=== PATIENT | female | born 1965 | race African-American/Black ===

== ENCOUNTER 2017-12-20 14:40 | Emergency (ER) | payer OTHER ==
[2017-12-20 14:54] VITALS: TEMP 98.5; BMI 34.3
[2017-12-20] MEDS ORDERED: ACETAMINOPHEN 325 MG TABLET (FP) PO ONE (15:28)
[2017-12-20] MEDS ORDERED: ACETAMINOPHEN 325 MG TABLET (FP) ONE (15:31)
[2017-12-20 15:37] LABS: URINE APPEARANCE Clear; URINE BILIRUBIN Negative (NEGATIVE); URINE COLOR Yellow; URINE GLUCOSE (UA) Negative (NEGATIVE); URINE KETONE Negative (NEGATIVE); URINE LEUK ESTERASE TRACE (NEGATIVE); URINE NITRITE Negative (NEGATIVE); URINE PROTEIN Negative (NEGATIVE); URINE UROBILINOGEN 0.2 (0.2-1.0)
--- NOTE | 2017-12-20 15:39 | PDOC ---
History of Present Illness <Talia Trammell - Last Filed: 12/20/17 17:41> - General History Source: Patient Exam Limitations: No Limitations - History of Present Illness Initial Comments: 12/20/17 15:41 The patient is a 52 year old female, with a significant past medical history of borderline DM, who presents to the emergency department with, lower back pain. Patient describes her pain as radiating to her buttocks with mild left pedal decreased sensation. She is able to ambulate without difficulties.Patient notes associated elevated blood pressure readings using an at home cuff of 130-150s/ 80s and 2 days of dysuria. The patient reports mild ear pain for 4 months that she is being followed up with her PCP, Dr. Connor. She did not take anything for her pain. She denies any weakness. She denies recent fevers, chills, headache or dizziness. She denies recent nausea, vomit, diarrhea or constipation. She denies recent frequency, urgency or hematuria. She denies recent chest pain or shortness of breath. Allergies: Aspirin. Past surgical history: None reported. Social history: Nonsmoker. Denies EtOH use and recreational drug use. Primary Care Physician: Dr. Connor <Duncan Lyman - Last Filed: 12/20/17 17:51> - General Chief Complaint: Pain Stated Complaint: LOWER BACK PAIN CHECK BLOOD PRESSURE Past History - Past Medical History COPD: No Diabetes: Yes (BORDER LINE) GI Disorders: Yes (ACID REFLUX) HTN: Yes Kidney Stones: Yes - Surgical History Abdominal Surgery: Yes (BILATERAL TUBAL LIGATION) - Suicide/Smoking/Psychosocial Hx Smoking Status: No Smoking History: Never smoked Number of Cigarettes Smoked Daily: 0 Cigars Per Day: 0 Information on smoking cessation initiated: No Hx Alcohol Use: No Drug/Substance Use Hx: No Substance Use Type: None Hx Substance Use Treatment: No <Talia Trammell - Last Filed: 12/20/17 17:41> <Duncan Lyman - Last Filed: 12/20/17 17:51> - Past Medical History Allergies/Adverse Reactions: Allergies Allergy/AdvReac Type Severity Reaction Status Date / Time aspirin Allergy Unknown Verified 12/20/17 14:42 Home Medications: Ambulatory Orders Ferrous Sulfate [Iron] 325 mg PO DAILY 12/20/17 Review of Systems - Review of Systems Able to Perform ROS?: Yes Comments:: 12/20/17 15:41 GENERAL/CONSTITUTIONAL: No fever or chills. No weakness. HEAD, EYES, EARS, NOSE AND THROAT: No change in vision. No ear pain or discharge. No sore throat. CARDIOVASCULAR: No chest pain or shortness of breath. RESPIRATORY: No cough, wheezing, or hemoptysis. GASTROINTESTINAL: No nausea, vomiting, diarrhea or constipation. GENITOURINARY: Dysuria. No frequency, or change in urination. MUSCULOSKELETAL: Lower back pain. No joint or muscle swelling or pain. No neck pain. SKIN: No rash NEUROLOGIC: Decreased left pedal sensation. No headache, vertigo, loss of consciousness, or change in strength/sensation. ENDOCRINE: No increased thirst. No abnormal weight change. HEMATOLOGIC/LYMPHATIC: No anemia, easy bleeding, or history of blood clots. ALLERGIC/IMMUNOLOGIC: No hives or skin allergy. All Other Systems: Reviewed and Negative <Duncan Lyman - Last Filed: 12/20/17 17:51> *Physical Exam - Vital Signs Last Vital Signs Temp Pulse Resp BP Pulse Ox 98.5 F 68 16 154/81 100 12/20/17 14:42 12/20/17 14:42 12/20/17 14:42 12/20/17 14:42 12/20/17 14:42 <Talia Trammell - Last Filed: 12/20/17 17:41> - Vital Signs Last Vital Signs Temp Pulse Resp BP Pulse Ox 98.5 F 68 16 154/81 100 12/20/17 14:42 12/20/17 14:42 12/20/17 14:42 12/20/17 14:42 12/20/17 14:42 - Physical Exam Comments: 12/20/17 15:42 GENERAL: Awake, alert, and fully oriented, in no acute distress HEAD: No signs of trauma EYES: PERRLA, EOMI, sclera anicteric, conjunctiva clear ENT: Auricles normal inspection, hearing grossly normal, nares patent. Moist mucosa NECK: Normal ROM, supple, no lymphadenopathy, JVD, or masses LUNGS: Breath sounds equal, clear to auscultation bilaterally. No wheezes, and no crackles HEART: Regular rate and rhythm, normal S1 and S2, no murmurs, rubs or gallops ABDOMEN: Soft, nontender, normoactive bowel sounds. No guarding, no rebound. No masses BACK: No midline or paraspinal tenderness. +EXTREMITIES: Normal range of motion, no edema. No erythema or tenderness. DP/ PT pulses 2+ and symmetric. Warm and well perfused. +NEUROLOGICAL: Decreased sensation to the left plantar surface. Strength 5/5. Moves all extremities. Normal speech, normal gait SKIN: Warm, Dry, normal turgor, no rashes or lesions noted. <Duncan Lyman - Last Filed: 12/20/17 17:51> ED Treatment Course - ADDITIONAL ORDERS Additional order review: Laboratory Results 12/20/17 15:30 Urine Color Yellow Urine Appearance Clear Urine pH 5.0 Ur Specific [place] 1.015 Urine Protein Negative Urine Glucose (UA) Negative Urine Ketones Negative Urine Blood 3+ H Urine Nitrite Negative Urine Bilirubin Negative Urine Urobilinogen 0.2 Ur Leukocyte Esterase Trace H - RADIOLOGY Radiology Studies Ordered: Category Date Time Status SPINE-LUMBAR SACRAL [RAD] Stat Radiology 12/20/17 15:28 Ordered - Medications Given in the ED: ED Medications Discontinued Medications Generic Name Dose Route Start Last Admin Trade Name Freq PRN Reason Stop Dose Admin Acetaminophen 650 mg 12/20/17 15:28 12/20/17 15:33 Tylenol - PO 12/20/17 15:29 650 mg ONCE ONE Administration <Talia Trammell - Last Filed: 12/20/17 17:41> - ADDITIONAL ORDERS Additional order review: Laboratory Results 12/20/17 15:30 Urine Color Yellow Urine Appearance Clear Urine pH 5.0 Ur Specific [place] 1.015 Urine Protein Negative Urine Glucose (UA) Negative Urine Ketones Negative Urine Blood 3+ H Urine Nitrite Negative Urine Bilirubin Negative Urine Urobilinogen 0.2 Ur Leukocyte Esterase Trace H - RADIOLOGY Radiograph Interpretation: 12/20/17 17:25 EXAM: CT abdomen and pelvis without contrast DATE OF EXAM: 2017-12-20 16:26:06 REASON FOR EXAM: Rule out stone COMPARISON: None Findings: Mild atelectasis and scarring in lung bases. No pleural effusions. The liver, gallbladder, pancreas, adrenal glands, and spleen are grossly unremarkable. *Bilateral nonobstructing nephrolithiasis, left greater than right. Indeterminate right renal cyst. No ureteral calculi or hydronephrosis. No AAA. Moderate stool in the colon. No evidence for diverticulitis, appendicitis, small bowel obstruction, free fluid, or free air. One or more of the following dose reduction techniques were used: automated exposure control, adjustment of the mA and/or kV according to patient size, use of iterative reconstructive technique. Read by: Vahid Garza MD - Medications Given in the ED: ED Medications Discontinued Medications Generic Name Dose Route Start Last Admin Trade Name Araseli PRN Reason Stop Dose Admin Acetaminophen 650 mg 12/20/17 15:28 12/20/17 15:33 Tylenol - PO 12/20/17 15:29 650 mg ONCE ONE Administration <Duncan Lyman - Last Filed: 12/20/17 17:51> Medical Decision Making - Medical Decision Making 12/20/17 15:39 52 yo back pain, miild co sensory changes in left foot 2 weeks. alsoc/of fluctant bp. 12/20/17 17:26 ct with renal stones, no ureteral stones. ua noted blood, no infection. xray large stool, stones, no bony deformity to vetebrae. will dc home recommend outpt followup for mri due to paresthesia in foot. <Talia Trammell - Last Filed: 12/20/17 17:41> - Medical Decision Making 12/20/17 5:15pm Call placed to Dr. Connor's answering service, call disconnected before full message left. 5:22pm Second placed to Dr. Connor's answering service, call disconnected before full message left. 5:35pm Third placed to Dr. Connor's answering service, call disconnected before message left. <Duncan Lyman - Last Filed: 12/20/17 17:51> *DC/Admit/Observation/Transfer - Discharge Dispostion Decision to Admit order: No <Talia Trammell - Last Filed: 12/20/17 17:41> - Attestations Scribe Attestion: 12/20/17 15:42 Documentation prepared by Duncan Lyman, acting as nurses medical assistants phlebotomists for Talia Trammell MD. <Duncan Lyman - Last Filed: 12/20/17 17:51> Diagnosis at time of Disposition: Low back pain - Discharge Dispostion Disposition: HOME Condition at time of disposition: Stable - Referrals Referrals: Bg Connor [Non Staff, Medical] - John Sepulveda MD [Staff Physician] - Nino Dougherty MD [Staff Physician] - - Patient Instructions Printed Discharge Instructions: Low Back Pain, DI for High Blood Pressure Additional Instructions: you should follow up with Dr Callahan your urologist. you can also follow up with dr. SEPULVEDA, an orthopedic spine surgeon. you should follow up with dr. Connor for a repeat blood pressure check in 3 - 5 days. return for weakness, worsening numbness chest pain shortness of breath or any concerns. your ct scan shows kidney stones, no blockage. otherwise normal. your urine is negative for infection only shows blood. you will likley need an outpatient mri of your spine for continued back pain . please call friday to set up with your primary doctor, or schedule appt to see dr. sepulveda.
[2017-12-20 16:12] LABS: EPI CELLS FEW /HPF
[2017-12-20 16:15] LABS: CALCIUM OXALATE CRYSTALS MODERATE /hpf (NONE SEEN)
[2017-12-20] MEDS ORDERED: IBUPROFEN 600 MG TABLET (FP) PO ONE ×3 (17:39→17:44)
[2017-12-20 17:42] VITALS: BP 146/84; PULSE 60
== END 2017-12-20 17:46 | disposition home or self-care (01) ==
LOC: FER 14:40
DX: M54.5 Low back pain (principal); R73.03 Prediabetes
CPT/HCPCS: 72100-TC-FY; 74176; 81003; 81015; 99282-25

== ENCOUNTER 2019-01-18 13:36 | Day surgery (SDC) | payer OTHER ==
[2019-01-15 11:17] VITALS: BMI 34.0
[2019-01-18] MEDS ORDERED: MIDAZOLAM HCL 2 MG/2 ML SINGLE DOSE VIAL ONE (16:11)
[2019-01-18] MEDS ORDERED: PROPOFOL 20 ML ONE (16:29)
--- NOTE | 2019-01-18 17:19 | OP ---
Operative Note - Note: Operative Date: 01/18/19 Pre-Operative Diagnosis: left renal stone Operation: left eswl Findings: 20 mm left upper pole stone Post-Operative Diagnosis: Same as Pre-op Surgeon: Pb Cruz Anesthesia: Fractional Operative Report Dictated: Yes
[2019-01-18] MEDS ORDERED: LACTATED RINGERS SOLUTION 1,000 ML IV SCH (17:30)
--- NOTE | 2019-01-18 17:34 | OP ---
DATE OF OPERATION: 01/18/2019 PREOPERATIVE DIAGNOSIS: Left renal stone. POSTOPERATIVE DIAGNOSIS: Left renal stone. PROCEDURE: Left extracorporeal shock-wave lithotripsy. ATTENDING: Selena Rossi MD ANESTHESIA: Fractional. DESCRIPTION OF PROCEDURE: Patient was brought in the operating room, placed in a supine position on the operating room table. Ultrasonography and fluoroscopy were performed. A 20-mm left upper pole stone was identified. At this point, anesthesia and preoperative antibiotics were administered. Shock-wave lithotripsy was then started; 3000 impulses at 20 joules of power were administered to the stone. Excellent fragmentation was noted under real time ultrasonography and fluoroscopy. No complications were noted. Patient tolerated the procedure very well. SELENA ROSSI M.D. [id number]
[2019-01-18 18:19] VITALS: TEMP 98.3
[2019-01-18 18:53] VITALS: BP 133/79; PULSE 63
== END 2019-01-18 19:11 | disposition home or self-care (01) ==
LOC: JASU-SURG 13:36 → JOR 13:36 → JASU-SURG 19:11
PROVIDERS: ATTEND Urology
PROC: 0TF4XZZ Fragmentation in Left Kidney Pelvis, External Approach (ICD-10-PCS; principal; 2019-01-18 16:17)
DX: N20.0 Calculus of kidney (principal)
CPT/HCPCS: 94760

== ENCOUNTER 2019-02-01 09:09 | Day surgery (SDC) | payer OTHER ==
[2019-01-26 17:33] VITALS: BMI 34.0
[2019-02-01 09:38] VITALS: TEMP 98.1
[2019-02-01] MEDS ORDERED: MIDAZOLAM HCL 2 MG/2 ML SINGLE DOSE VIAL ONE (13:06)
--- NOTE | 2019-02-01 13:55 | OP ---
Operative Note - Note: Operative Date: 02/01/19 Pre-Operative Diagnosis: Right remal stone Operation: Righr ESWL Findings: 6 mm lower pole Right renal stone Post-Operative Diagnosis: Same as Pre-op Surgeon: Pb Cruz Anesthesia: Fractional Estimated Blood Loss (mls): 0 Drains, Volume Out (mls): 0 Operative Report Dictated: Yes
[2019-02-01 15:11] VITALS: BP 123/64; PULSE 60
--- NOTE | 2019-02-01 17:36 | OP ---
DATE OF OPERATION: 02/01/2019 PREOPERATIVE DIAGNOSIS: Right renal stone. POSTOPERATIVE DIAGNOSIS: Right renal stone. PROCEDURE: Right extracorporeal shock-wave lithotripsy. ATTENDING: Selena Rossi MD ANESTHESIA: Fractional. DESCRIPTION OF PROCEDURE: The patient was brought in the operating room and placed in a supine position on the operating room table. Ultrasonography and fluoroscopy were performed. A 6-mm right lower pole stone was identified. At this point, fractional anesthesia was administered as well as antibiotics. Shock-wave lithotripsy was then performed. Excellent fragmentation of the stone was noted under real time ultrasonography and fluoroscopy. No complications were noted. DISPOSITION: To recovery room. SELENA ROSSI M.D. [id number]
== END 2019-02-01 15:27 | disposition home or self-care (01) ==
LOC: JASU-SURG 09:09
PROVIDERS: ATTEND Urology
PROC: 0TF3XZZ Fragmentation in Right Kidney Pelvis, External Approach (ICD-10-PCS; principal; 2019-02-01 12:30)
DX: N20.0 Calculus of kidney (principal)

== ENCOUNTER 2019-02-13 19:10 | Inpatient (IN) | payer OTHER ==
--- NOTE | 2019-02-13 19:47 | PDOC ---
History of Present Illness - General Chief Complaint: Urinary Problem Stated Complaint: HEMATURIA Time Seen by Provider: 02/13/19 19:28 History Source: Patient - History of Present Illness Initial Comments: 02/13/19 21:48 Chief complaint: Hematuria Patient is 53-year-old female with history of diabetes, hypertension, anemia, kidney stones who states that she has had hematuria that started today, patient last had this problem in January, she ended up having lithotripsy on both sides of her kidneys with multiple stones. Patient also January had endoscopy and colonoscopy. Patient has no fever but is complaining of some generalized back pain. Patient is not vomiting. She states that her urine started out pink earlier today and now it is just red. GENERAL/CONSTITUTIONAL: No fever, weakness. dizziness HEAD, EYES, EARS, NOSE AND THROAT: No change in vision. No ear pain or discharge. No sore throat. CARDIOVASCULAR: No chest pain RESPIRATORY: No shortness of breath or cough GASTROINTESTINAL: +pain, no: Nausea, vomiting, diarrhea or constipation GENITOURINARY: No dysuria, + hematuria MUSCULOSKELETAL: No neck or back pain SKIN: No rash NEUROLOGIC: No headache, vertigo, loss of consciousness, or loss of sensation. GENERAL: The patient is awake, alert, and fully oriented, in no acute distress. HEAD: Normal with no signs of trauma. EYES: Pupils equal, round and reactive to light, sclera anicteric, conjunctiva clear. ENT: pharynx: no erythema, no exudate, uvula midline NECK: supple CHEST: clear, nontender, rr ABD: soft, nontender BACK: no tenderness or signs of injury EXTREMITIES: Normal range of motion, no edema. NEUROLOGICAL: Normal speech, normal gait. SKIN: Warm, Dry Past History - Past Medical History Allergies/Adverse Reactions: Allergies Allergy/AdvReac Type Severity Reaction Status Date / Time aspirin Allergy Unknown Verified 02/13/19 19:20 Home Medications: Ambulatory Orders Ferrous Sulfate [Iron] 325 mg PO DAILY 12/20/17 Anemia: Yes Asthma: No Cancer: No Cardiac Disorders: No CVA: No COPD: No CHF: No Dementia: No Diabetes: Yes (BORDER LINE) GI Disorders: Yes (ACID REFLUX) Disorders: No (kidney stones left greater than right) HTN: Yes (borderline) Hypercholesterolemia: No Kidney Stones: Yes Liver Disease: Yes (elevated enzymes) Seizures: No Thyroid Disease: No - Surgical History Abdominal Surgery: Yes (BILATERAL TUBAL LIGATION) Appendectomy: No Cardiac Surgery: No Cholecystectomy: No Lung Surgery: No Neurologic Surgery: Yes (2004 bulging tissue) Orthopedic Surgery: No - Immunization History Immunization Up to Date: Yes - Psycho Social/Smoking Cessation Hx Smoking Status: No Smoking History: Never smoked Number of Cigarettes Smoked Daily: 0 Cigars Per Day: 0 Hx Alcohol Use: No Drug/Substance Use Hx: No Substance Use Type: None Hx Substance Use Treatment: No *Physical Exam - Vital Signs Last Vital Signs Temp Pulse Resp BP Pulse Ox 99.0 F 72 20 151/53 L 99 02/13/19 19:15 02/13/19 19:15 02/13/19 19:15 02/13/19 19:15 02/13/19 19:15 ED Treatment Course - LABORATORY CBC & Chemistry Diagram: 02/13/19 20:30 02/13/19 20:30 Medical Decision Making - Medical Decision Making 02/13/19 21:52 53-year-old female history anemia, hypertension, diabetes and multiple kidney stones who has nam hematuria that started very light this morning is gotten worse during the day with some vague abdominal pain. Given her history will get labs, check UA, and get stone study to assess whether there are kidney stones and obstruction. Patient signed out to CHAI Killian at 11 pm for further evaluation of her UA and CAT scan. Her CBC and chemistry are stable. Urine is dark, CPK added Discharge - Discharge Information Problems reviewed: Yes Clinical Impression/Diagnosis: Hematuria Qualifiers: Hematuria type: unspecified type Qualified Code(s): R31.9 - Hematuria, unspecified - Follow up/Referral - Patient Discharge Instructions - Post Discharge Activity
[2019-02-13] MEDS ORDERED: ACETAMINOPHEN 325 MG TABLET (FP) PO ONE (19:48)
[2019-02-13] MEDS ORDERED: SODIUM CHLORIDE 1,000 ML IV STA (19:48)
[2019-02-13 20:52] LABS: BASO % 1.8 % (0-2.0); EOS % 1.3 % (0-4.5); HEMOGLOBIN 11.1 GM/dL (10.7-15.3); LYMPH % 51.7 % (8-40); MCH 28.7 pg (25.7-33.7); MCHC 32.7 g/dl (32.0-36.0); MEAN CELL VOLUME 87.7 fl (80-96); MEAN PLT VOLUME 9.1 fl (7.5-11.1); MONO % 5.4 % (3.8-10.2); NEUT % 39.8 % (42.8-82.8); PLATELET COUNT 312 K/MM3 (134-434); RBC 3.87 M/mm3 (3.60-5.2); RDW 12.8 % (11.6-15.6); WHITE BLOOD COUNT 7.1 K/mm3 (4.0-10.0)
[2019-02-13 21:21] LABS: ALBUMIN 3.8 g/dl (3.4-5.0); ALK PHOS 88 U/L (45-117); ANION GAP 11 MMOL/L (8-16); BILIRUBIN,TOTAL 0.7 mg/dL (0.2-1); BLOOD UREA NITROGEN 14.3 mg/dL (7-18); CALCIUM 9.5 mg/dL (8.5-10.1); CHLORIDE 104 mmol/L (98-107); CO2 26 mmol/L (21-32); CREATININE 0.8 mg/dL (0.55-1.3); GLUCOSE,RANDOM 108 mg/dL (74-106); SGOT/AST 22 U/L (15-37); SGPT/ALT 29 U/L (13-61); SODIUM 140 mmol/L (136-145); TOT PROT 8.2 g/dl (6.4-8.2)
[2019-02-13 22:00] LABS: EPI CELLS 1.4 /HPF (0-5/HPF); HYALINE CASTS 3 /lpf (0-8); URINE APPEARANCE CLOUDY; URINE BACTERIA 0.5 /hpf (NEGATIVE); URINE BILIRUBIN NEGATIVE (NEGATIVE); URINE COLOR RED; URINE GLUCOSE (UA) NEGATIVE (NEGATIVE); URINE KETONE NEGATIVE (NEGATIVE); URINE LEUK ESTERASE 1+ (NEGATIVE); URINE NITRITE NEGATIVE (NEGATIVE); URINE PROTEIN 3+ (NEGATIVE); URINE RBC 2247 /hpf (0-4); URINE WBC 14 /hpf (0-5)
--- NOTE | 2019-02-14 00:31 | PDOC ---
*Physical Exam - Vital Signs Last Vital Signs Temp Pulse Resp BP Pulse Ox 99.0 F 72 20 151/53 L 99 02/13/19 19:15 02/13/19 19:15 02/13/19 19:15 02/13/19 19:15 02/13/19 19:15 - Physical Exam General Appearance: Yes: Nourished, Appropriately Dressed. No: Apparent Distress Musculoskeletal: positive: CVA Tenderness (L) (mild) ED Treatment Course - LABORATORY CBC & Chemistry Diagram: 02/15/19 06:22 02/14/19 07:49 - ADDITIONAL ORDERS Additional order review: Laboratory Results 02/13/19 02/13/19 21:50 20:30 Sodium 140 Potassium 4.0 Chloride 104 Carbon Dioxide 26 Anion Gap 11 BUN 14.3 Creatinine 0.8 Est GFR (CKD-EPI)AfAm 96.87 Est GFR (CKD-EPI)NonAf 83.58 Random Glucose 108 H Calcium 9.5 Total Bilirubin 0.7 AST 22 ALT 29 Alkaline Phosphatase 88 Creatine Kinase 222 H Creatine Kinase Index 0.9 CK-MB (CK-2) 2.0 Troponin I < 0.02 Total Protein 8.2 Albumin 3.8 Urine Color Red Urine Appearance Cloudy Urine pH 5.0 Ur Specific [place] 1.013 Urine Protein 3+ H Urine Glucose (UA) Negative Urine Ketones Negative Urine Blood 3+ H Urine Nitrite Negative Urine Bilirubin Negative Urine Urobilinogen 1.0 Ur Leukocyte Esterase 1+ H Urine WBC (Auto) 14 Urine RBC (Auto) 2247 Urine Casts (Auto) 3 U Epithel Cells (Auto) 1.4 Urine Bacteria (Auto) 0.5 02/13/19 20:30 RBC 3.87 MCV 87.7 MCHC 32.7 RDW 12.8 MPV 9.1 Neutrophils % 39.8 L D Lymphocytes % 51.7 H D Monocytes % 5.4 Eosinophils % 1.3 D Basophils % 1.8 - Medications Given in the ED: ED Medications Discontinued Medications Generic Name Dose Route Start Last Admin Trade Name Freq PRN Reason Stop Dose Admin Acetaminophen 975 mg 02/13/19 19:48 02/13/19 19:56 Tylenol - PO 02/13/19 19:49 975 mg ONCE ONE Administration Sodium Chloride 1,000 mls @ 1,000 mls/hr 02/13/19 19:48 02/13/19 19:57 Normal Saline - IV 02/13/19 20:47 1,000 mls/hr ASDIR STA Administration Medical Decision Making - Medical Decision Making 02/14/19 01:42 Signout was given to me by IRENA Gilliland at 2300 hrs. on 02/13/2019. Patient was pending CT spiral. CT shows multiple obstructing stones in the left ureter measuring 7 to 8 mm each. In addition, there are more multiple nonobstructing nephrolithiasis left greater than right measuring up to 1.1 cm in the lower pole of the left kidney. Incidental note is made of a 2.8 cm cyst in the inferior pole of the right kidney. Patient had recent lithotripsy by Dr. Windy Porras on February 03 for kidney stones on the right side. She had lithotripsy for the left side done on 01/20/2019. Given multiple obstructing stones with moderate to mild hydro-we will place the patient for admission Labs are unremarkable. Patient states that her PCP comes from the clinic [facility]. She does not know the name of her physician. Sign out given to Dr. Pool for admission at this time. Uro consult placed. Discharge - Discharge Information Problems reviewed: Yes Clinical Impression/Diagnosis: Hydronephrosis with renal and ureteral calculus obstruction Hematuria Qualifiers: Hematuria type: unspecified type Qualified Code(s): R31.9 - Hematuria, unspecified Condition: Stable - Admission Yes - Follow up/Referral - Patient Discharge Instructions - Post Discharge Activity
--- NOTE | 2019-02-14 03:01 | PN ---
Teaching Attending Note Name of Resident: Bernie Pool ATTENDING PHYSICIAN STATEMENT I saw and evaluated the patient. I reviewed the resident's note and discussed the case with the resident. I agree with the resident's findings and plan as documented. SUBJECTIVE: 53-year-old female with history of diabetes, hypertension, anemia, kidney stones With hematuria x1 day. She reported recent bilateral lithotripsy for nephro ureter-lithiasis. Complains of vague Back and abdominal pain.There is no nausea or vomiting. OBJECTIVE: Last Vital Signs Temp Pulse Resp BP Pulse Ox 98.9 F 78 20 156/61 98 02/14/19 02:29 02/14/19 02:29 02/14/19 02:29 02/14/19 02:29 02/14/19 02:29 GENERAL: Well developed, well nourished. Awake and alert. No acute distress. HEENT: Normocephalic, atraumatic. PERRLA, EOMI. No conjunctival pallor. Sclera are non- icteric. Moist mucous membranes. Oropharynx is clear. NECK: Supple. Full ROM. No JVD. Carotid pulses 2+ and symmetric, without bruits. No thyromegaly. No lymphadenopathy. CARDIOVASCULAR: Regular rate and rhythm. No murmurs, rubs, or gallops. Distal pulses are 2+ and symmetric. PULMONARY: No evidence of respiratory distress. Lungs clear to auscultation bilaterally. No wheezing, rales or rhonchi. ABDOMINAL: Soft. Non-tender. Non-distended. No rebound or guarding. No organomegaly. Normoactive bowel sounds. MUSCULOSKELETAL Normal range of motion at all joints. No bony deformities or tenderness. No CVA tenderness. EXTREMITIES: No cyanosis. No clubbing. No edema. No calf tenderness. SKIN: Warm and dry. Normal capillary refill. No rashes. No jaundice. PSYCHIATRIC: Cooperative. Good eye contact. Appropriate mood and affect. Abnormal Lab Results 02/13/19 02/13/19 02/13/19 20:30 20:30 21:50 Neutrophils % 39.8 L D Lymphocytes % 51.7 H D Random Glucose 108 H Creatine Kinase 222 H Urine Protein 3+ H Urine Blood 3+ H Ur Leukocyte Esterase 1+ H Imaging studies reviewed CT of abdomen and pelvisMild to moderate degree of left-sided hydro-ureter nephrosis secondary to multiple obstructing ureterolithiasis in the ureter on the left measuring up to 7 to 8 mm. In addition there are multiple nonobstructing nephrolithiasis left greater than right measuring up to 1.1 cm in the lower pole of the left kidney. Incidental note is made of a 2.8 cm cyst in the inferior pole over the right kidney. ASSESSMENT AND PLAN: 53-year-old woman with bilateral nonobstructing nephrolithiasis left greater than right. Mild to moderate left-sided hydro-ureter nephrosis. Hematuria with 3+ blood on UA, hemodynamically stable. Admit to MedSurg EKG Urology consult N.p.o. PT, PTT Type and screen Pain management with morphine IV as needed IV fluid hydration SCDs for DVT prophylaxis
[2019-02-14 03:33] VITALS: BMI 33.3
--- NOTE | 2019-02-14 04:11 | HP ---
CHIEF COMPLAINT: hematuria PCP: HISTORY OF PRESENT ILLNESS: Pt is 53yo F with PMHx of PreDM, PreHTN, anemia, kidney stones presenting for hematuria that started today. Pt reports having some epigastric abdominal discomfort, for about 4 days prior to onset of hematuria pinkish to red colored urine. No fevers, no chills. There is now intermittent L flank abdominal pain radiating to the groin. Pt reports prior episodes of kidney stones requiring lithotrypsy here by Dr Sinclair in January 20 2019, and Feb 03 2019 for lithotripsy left then Right. Due to anemia, pt also had colonoscopy in , then endoscopy with Dr Justin. Pt presented because of the hematuria. In the ED she was reported to be a "hard stick" and did not get any intravenous fluids. She currently reports the flank pain as 4/10 managed off pain meds, but at its peak the pain is 10/10. Pt reports adequate oral hydration. She reports filtering her urine in past but unsure of results of stone analysis. Her father had gall stones but no family hx of renal stones. Pt reports not being compliant on iron tabs or metformin. ER course was notable for: (1) H/H-11.1, MCV-87.7, BUN/Cr- 14.3/0.8 (2) UA- LE1+, protein 3+, bld 3+, WBC-14, RBC-2247, casts-3, Uepith-1.4 (3) Recent Travel: PAST MEDICAL HISTORY: As above PAST SURGICAL HISTORY: Social History: Smoking: Denies Alcohol:Denies Drugs: Denies Allergies aspirin Allergy (Unknown, Verified 02/13/19 19:20) HOME MEDICATIONS: Home Medications Medication Instructions Recorded Ferrous Sulfate [Iron] 325 mg PO DAILY 12/20/17 REVIEW OF SYSTEMS Except as above PHYSICAL EXAMINATION Vital Signs - 24 hr 02/13/19 02/14/19 02/14/19 19:15 02:29 03:13 Temperature 99.0 F 98.9 F 98.4 F Pulse Rate 72 69 Pulse Rate [ 78 Left Radial] Respiratory 20 20 16 Rate Blood Pressure 151/53 L 134/71 Blood Pressure 156/61 [Left Arm] O2 Sat by Pulse 99 98 100 Oximetry (%) GENERAL: Awake, alert, and fully oriented, in no acute distress. Obese female EARS, NOSE, THROAT: Moist mucous membranes. LUNGS: Breath sounds equal, clear to auscultation bilaterally. No wheezes, and no crackles. HEART: Regular rate and rhythm, normal S1 and S2 without murmur, rub or gallop. ABDOMEN: Obese, Soft, tender, LLQ MUSCULOSKELETAL: Normal range of motion at all joints. No CVA tenderness. LOWER EXTREMITIES: 2+ pulses, warm, well-perfused. No calf tenderness. No peripheral edema. NEUROLOGICAL: Cranial nerves II-XII intact. Normal speech. Normal gait. PSYCHIATRIC: Cooperative. Good eye contact. Appropriate mood and affect. Laboratory Results - last 24 hr 02/13/19 02/13/19 02/13/19 20:30 20:30 21:50 WBC 7.1 RBC 3.87 Hgb 11.1 Hct 34.0 MCV 87.7 MCH 28.7 MCHC 32.7 RDW 12.8 Plt Count 312 MPV 9.1 Absolute Neuts (auto) 2.8 Neutrophils % 39.8 L D Lymphocytes % 51.7 H D Monocytes % 5.4 Eosinophils % 1.3 D Basophils % 1.8 Nucleated RBC % 0 Sodium 140 Potassium 4.0 Chloride 104 Carbon Dioxide 26 Anion Gap 11 BUN 14.3 Creatinine 0.8 Est GFR (CKD-EPI)AfAm 96.87 Est GFR (CKD-EPI)NonAf 83.58 POC Glucometer Random Glucose 108 H Calcium 9.5 Total Bilirubin 0.7 AST 22 ALT 29 Alkaline Phosphatase 88 Creatine Kinase 222 H Creatine Kinase Index 0.9 CK-MB (CK-2) 2.0 Troponin I < 0.02 Total Protein 8.2 Albumin 3.8 Urine Color Red Urine Appearance Cloudy Urine pH 5.0 Ur Specific Slaughter 1.013 Urine Protein 3+ H Urine Glucose (UA) Negative Urine Ketones Negative Urine Blood 3+ H Urine Nitrite Negative Urine Bilirubin Negative Urine Urobilinogen 1.0 Ur Leukocyte Esterase 1+ H Urine WBC (Auto) 14 Urine RBC (Auto) 2247 Urine Casts (Auto) 3 U Epithel Cells (Auto) 1.4 Urine Bacteria (Auto) 0.5 02/14/19 03:48 WBC RBC Hgb Hct MCV MCH MCHC RDW Plt Count MPV Absolute Neuts (auto) Neutrophils % Lymphocytes % Monocytes % Eosinophils % Basophils % Nucleated RBC % Sodium Potassium Chloride Carbon Dioxide Anion Gap BUN Creatinine Est GFR (CKD-EPI)AfAm Est GFR (CKD-EPI)NonAf POC Glucometer 126 Random Glucose Calcium Total Bilirubin AST ALT Alkaline Phosphatase Creatine Kinase Creatine Kinase Index CK-MB (CK-2) Troponin I Total Protein Albumin Urine Color Urine Appearance Urine pH Ur Specific [place] Urine Protein Urine Glucose (UA) Urine Ketones Urine Blood Urine Nitrite Urine Bilirubin Urine Urobilinogen Ur Leukocyte Esterase Urine WBC (Auto) Urine RBC (Auto) Urine Casts (Auto) U Epithel Cells (Auto) Urine Bacteria (Auto) CT shows multiple obstructing stones in the left ureter measuring 7 to 8 mm each. In addition, there are more multiple nonobstructing nephrolithiasis left greater than right measuring up to 1.1 cm in the lower pole of the left kidney. Incidental note is made of a 2.8 cm cyst in the inferior pole of the right kidney. ASSESSMENT/PLAN: Pt is a 53-year-old female with PMHx of PreDM, PreHTN, anemia, kidney stones presenting for hematuria that started today found to have multiple obstructing stones in the left ureter Hematuria In setting of L ureteral obstructive stones Urol consult- [place] Pain mx- morphine iv tylenol preop lab Iv hydration PreDM, PreHTN, anemia, Hx of kidney stones Cont to monitor No chemical prophylaxis, b/l SCDs NPO for now Dispo Med surg admit pending urology Visit type - Emergency Visit Emergency Visit: Yes ED Registration Date: 02/14/19 Care time: The patient presented to the Emergency Department on the above date and was hospitalized for further evaluation of their emergent condition. - New Patient This patient is new to me today: Yes Date on this admission: 02/14/19 - Critical Care Critical Care patient: No ATTENDING PHYSICIAN STATEMENT I saw and evaluated the patient. I reviewed the resident's note and discussed the case with the resident. I agree with the resident's findings and plan as documented. SUBJECTIVE: OBJECTIVE: ASSESSMENT AND PLAN:
[2019-02-14] MEDS ORDERED: MORPHINE SULFATE 2 MG/ML VIAL IVPUSH PRN (04:12)
[2019-02-14] MEDS ORDERED: SODIUM CHLORIDE 500 ML IV STA (04:12)
[2019-02-14] MEDS ORDERED: ACETAMINOPHEN 1000 MG/100 ML VIAL (NON FORMULARY) IVPB PRN (04:17)
[2019-02-14 08:28] LABS: EOS % 1.5 % (0-4.5); HEMATOCRIT 32.2 % (32.4-45.2); HEMOGLOBIN 10.6 GM/dL (10.7-15.3); LYMPH % 53.9 % (8-40); MCH 28.8 pg (25.7-33.7); MCHC 32.9 g/dl (32.0-36.0); MEAN CELL VOLUME 87.7 fl (80-96); MONO % 5.7 % (3.8-10.2); NEUT % 37.9 % (42.8-82.8); PLATELET COUNT 298 K/MM3 (134-434); RBC 3.67 M/mm3 (3.60-5.2); RDW 13.1 % (11.6-15.6); WHITE BLOOD COUNT 6.1 K/mm3 (4.0-10.0)
[2019-02-14 08:40] LABS: INR 1.02 (0.83-1.09)
[2019-02-14 08:42] LABS: ACTIVATED PTT 37.5 SECONDS (25.2-36.5)
[2019-02-14 08:57] LABS: ALBUMIN 3.4 g/dl (3.4-5.0); BILIRUBIN,TOTAL 0.6 mg/dL (0.2-1); BLOOD UREA NITROGEN 14.5 mg/dL (7-18); CALCIUM 9.4 mg/dL (8.5-10.1); CREATININE 0.7 mg/dL (0.55-1.3); MAGNESIUM 2.3 mg/dL (1.8-2.4); PHOSPHOROUS 4.5 mg/dL (2.5-4.9); TOT PROT 7.3 g/dl (6.4-8.2)
--- NOTE | 2019-02-14 10:11 | EKG ---
Test Reason : Blood Pressure : / mmHG Vent. Rate : 062 BPM Atrial Rate : 062 BPM P-R Int : 154 ms QRS Dur : 080 ms QT Int : 454 ms P-R-T Axes : 034 014 003 degrees QTc Int : 460 ms NORMAL SINUS RHYTHM NONSPECIFIC T WAVE ABNORMALITY ABNORMAL ECG WHEN COMPARED WITH ECG OF 15-OCT-2004 11:18, NONSPECIFIC T WAVE ABNORMALITY NOW EVIDENT IN ANTEROLATERAL LEADS Confirmed by KENNETH DALE, ALESHA ([id number]) on 02/14/2019 10:11:32 AM Referred By: Confirmed By:ALESHA COOPER MD
[2019-02-14] MEDS: SODIUM CHLORIDE 1,000 ML IV SCH ×2 (11:39→21:19)
--- NOTE | 2019-02-14 13:37 | PN ---
Progress Note (short form) - Note Progress Note: Subjective: no fever or chills. discomfort in lower abd. hematuria . dyuria earlier Objective: Vital Signs: Last Vital Signs Temp Pulse Resp BP Pulse Ox 98.2 F 59 L 16 117/57 L 100 02/14/19 06:00 02/14/19 06:00 02/14/19 06:00 02/14/19 06:00 02/14/19 03:13 Laboratory Results - last 24 hr 02/13/19 02/13/19 02/13/19 20:30 20:30 21:50 WBC 7.1 RBC 3.87 Hgb 11.1 Hct 34.0 MCV 87.7 MCH 28.7 MCHC 32.7 RDW 12.8 Plt Count 312 MPV 9.1 Absolute Neuts (auto) 2.8 Neutrophils % 39.8 L D Lymphocytes % 51.7 H D Monocytes % 5.4 Eosinophils % 1.3 D Basophils % 1.8 Nucleated RBC % 0 PT with INR INR PTT (Actin FS) Sodium 140 Potassium 4.0 Chloride 104 Carbon Dioxide 26 Anion Gap 11 BUN 14.3 Creatinine 0.8 Est GFR (CKD-EPI)AfAm 96.87 Est GFR (CKD-EPI)NonAf 83.58 POC Glucometer Random Glucose 108 H Calcium 9.5 Phosphorus Magnesium Total Bilirubin 0.7 AST 22 ALT 29 Alkaline Phosphatase 88 Creatine Kinase 222 H Creatine Kinase Index 0.9 CK-MB (CK-2) 2.0 Troponin I < 0.02 Total Protein 8.2 Albumin 3.8 Urine Color Red Urine Appearance Cloudy Urine pH 5.0 Ur Specific [place] 1.013 Urine Protein 3+ H Urine Glucose (UA) Negative Urine Ketones Negative Urine Blood 3+ H Urine Nitrite Negative Urine Bilirubin Negative Urine Urobilinogen 1.0 Ur Leukocyte Esterase 1+ H Urine WBC (Auto) 14 Urine RBC (Auto) 2247 Urine Casts (Auto) 3 U Epithel Cells (Auto) 1.4 Urine Bacteria (Auto) 0.5 Blood Type Antibody Screen 02/14/19 02/14/19 02/14/19 03:48 07:49 07:49 WBC 6.1 RBC 3.67 Hgb 10.6 L Hct 32.2 L MCV 87.7 MCH 28.8 MCHC 32.9 RDW 13.1 Plt Count 298 MPV 9.0 Absolute Neuts (auto) 2.3 Neutrophils % 37.9 L Lymphocytes % 53.9 H Monocytes % 5.7 Eosinophils % 1.5 Basophils % 1.0 Nucleated RBC % 0 PT with INR 12.00 INR 1.02 PTT (Actin FS) 37.5 H Sodium Potassium Chloride Carbon Dioxide Anion Gap BUN Creatinine Est GFR (CKD-EPI)AfAm Est GFR (CKD-EPI)NonAf POC Glucometer 126 Random Glucose Calcium Phosphorus Magnesium Total Bilirubin AST ALT Alkaline Phosphatase Creatine Kinase Creatine Kinase Index CK-MB (CK-2) Troponin I Total Protein Albumin Urine Color Urine Appearance Urine pH Ur Specific [place] Urine Protein Urine Glucose (UA) Urine Ketones Urine Blood Urine Nitrite Urine Bilirubin Urine Urobilinogen Ur Leukocyte Esterase Urine WBC (Auto) Urine RBC (Auto) Urine Casts (Auto) U Epithel Cells (Auto) Urine Bacteria (Auto) Blood Type Antibody Screen 02/14/19 02/14/19 07:49 07:49 WBC RBC Hgb Hct MCV MCH MCHC RDW Plt Count MPV Absolute Neuts (auto) Neutrophils % Lymphocytes % Monocytes % Eosinophils % Basophils % Nucleated RBC % PT with INR INR PTT (Actin FS) Sodium 141 Potassium 4.0 Chloride 107 Carbon Dioxide 26 Anion Gap 9 BUN 14.5 Creatinine 0.7 Est GFR (CKD-EPI)AfAm 113.84 Est GFR (CKD-EPI)NonAf 98.23 POC Glucometer Random Glucose 95 Calcium 9.4 Phosphorus 4.5 Magnesium 2.3 Total Bilirubin 0.6 AST 15 ALT 25 Alkaline Phosphatase 94 Creatine Kinase Creatine Kinase Index CK-MB (CK-2) Troponin I Total Protein 7.3 Albumin 3.4 Urine Color Urine Appearance Urine pH Ur Specific [place] Urine Protein Urine Glucose (UA) Urine Ketones Urine Blood Urine Nitrite Urine Bilirubin Urine Urobilinogen Ur Leukocyte Esterase Urine WBC (Auto) Urine RBC (Auto) Urine Casts (Auto) U Epithel Cells (Auto) Urine Bacteria (Auto) Blood Type O POSITIVE Antibody Screen Negative Physical Exam: NAD, MMM Cv : RRR, no MRG Lungs: CTAB Ext : no edema or erythema Abd: soft, TTP in b/l lower quadrants . no rebound . No CVA tenderness. no rigidity Imaging: CT report reviewed. Assessment/Plan: 53 y/o lady with h/o iron def anmeia, nephrolithiasis s/p recent lithotripsy who presented with hematuria and abd pain and was found to have L hydro nephrosis and nephrolithiasis. 1- Nephrolithiasis with L hydro: - add IVF - add Ceftriaxone empirically. follow urine cx - awaiting urology consult - resume diet . doubt a procedure will be done today - scds fro DVT px . No chemical 2- iron def anemia : ferrous sulfate 3- constipation : due to iron . ad colace Visit type - Emergency Visit Emergency Visit: Yes ED Registration Date: 02/14/19 Care time: The patient presented to the Emergency Department on the above date and was hospitalized for further evaluation of their emergent condition. - New Patient This patient is new to me today: Yes Date on this admission: 02/14/19 - Critical Care Critical Care patient: No
[2019-02-14] MEDS ORDERED: DOCUSATE SODIUM 100 MG CAPSULE (FP) PO PRN (13:38)
[2019-02-14] MEDS ORDERED: cefTRIAXone SODIUM 1 GM VIAL ONE (14:05)
[2019-02-14] MEDS ORDERED: DEXTROSE 5%-WATER - 50 ML IVPB ONE (14:05)
[2019-02-14] MEDS: CEFTRIAXONE 1 GM in DEXTROSE 5%-WATER - 50 ML IVPB SCH (14:25)
[2019-02-14] MEDS: FERROUS SO4 325 MG TABLET (FP) PO SCH (21:18)
[2019-02-15] MEDS: SODIUM CHLORIDE 1,000 ML IV SCH ×2 (06:38→12:21)
[2019-02-15 06:51] LABS: HEMATOCRIT 30.6 % (32.4-45.2); HEMOGLOBIN 10.2 GM/dL (10.7-15.3); MCHC 33.3 g/dl (32.0-36.0); MEAN CELL VOLUME 87.1 fl (80-96); PLATELET COUNT 286 K/MM3 (134-434); RBC 3.51 M/mm3 (3.60-5.2); RDW 12.5 % (11.6-15.6); WHITE BLOOD COUNT 5.4 K/mm3 (4.0-10.0)
[2019-02-15] MEDS ORDERED: SUCCINYLCHOLINE CHLORIDE 200 MG/10 ML SYRINGE ONE (08:49)
[2019-02-15] MEDS ORDERED: PROPOFOL 20 ML ONE (08:49)
[2019-02-15] MEDS ORDERED: MIDAZOLAM HCL 2 MG/2 ML SINGLE DOSE VIAL ONE (08:49)
[2019-02-15] MEDS ORDERED: IOHEXOL 300 MG/ML INFUS..BTL IV ONE (09:14)
[2019-02-15] MEDS ORDERED: ONDANSETRON 4 MG/2 ML VIAL IVPUSH PRN ×2 (10:11→19:24)
--- NOTE | 2019-02-15 10:14 | CONSULT ---
Consult - text type - Consultation Consultation Note: CC: left renal colic with obstructing left ureteral stones with hydronephrosis HPI: Patient is s/p left ESWL 2 weeks ago. Patient complains of severe left colic with nausea and vomiting. Patient with chills and question of fever at home. The patient reports significant gross hematuria. and inability to maintain a diet. PE vss; afeb severe left CVAT UA consistent with uti ct scan reviewed discussed with patient and staff x25 minutes imp uti obstructed left kidney secondary to stones with significant hydronephrosis plan patient is emergently taken to the OR for stent placement and possible stone removal to avoid acute renal injury and urosepsis
[2019-02-15] MEDS ORDERED: LACTATED RINGERS SOLUTION 1,000 ML IV SCH (10:15)
--- NOTE | 2019-02-15 10:24 | OP ---
Operative Note - Note: Operative Date: 02/15/19 Pre-Operative Diagnosis: left ureteral stones with obstruction/hydronephrosis/ uti Operation: cystoscopy/urethral dilation/left retrograde pyelogram/left ureteroscopic laser lithotripsy/left ureteroscopic stone basketing/left ureteral stent placement Findings: multiple ureteral stones urethral sticture high grade hydroureteronephrosis Surgeon: Pb Cruz Anesthesia: General Specimens Removed: multiple stones Drains & Tubes with Location: 08/24 left ureteral stent Operative Report Dictated: Yes
[2019-02-15] MEDS ORDERED: cefTRIAXone SODIUM 1 GM VIAL ONE (11:06)
[2019-02-15] MEDS ORDERED: DEXTROSE 5%-WATER - 50 ML IVPB ONE (11:06)
[2019-02-15] MEDS: CEFTRIAXONE 1 GM in DEXTROSE 5%-WATER - 50 ML IVPB SCH (11:08)
[2019-02-15] MEDS: FERROUS SO4 325 MG TABLET (FP) PO SCH ×2 (11:08→21:09)
[2019-02-15] MEDS ORDERED: oxyCODONE HCL 5 MG TABLET PO PRN (13:38)
--- NOTE | 2019-02-15 18:13 | OP ---
DATE OF OPERATION: 02/15/2019 PREOPERATIVE DIAGNOSIS: Left hydronephrosis with ureteral obstruction secondary stone with an active urinary tract infection. ATTENDING: Selena Rossi MD ANESTHESIA: General. DESCRIPTION OF PROCEDURE: Patient was brought in the operating room and placed in a supine position on the operating room table. Patient was given anesthesia and preoperative antibiotics and placed in a dorsal lithotomy position. She was then prepped and draped in the usual sterile manner. The patient is 2 weeks status post an extracorporeal shock-wave lithotripsy on the left. The patient developed left flank pain and had multiple stones with proximal high-grade hydroureteronephrosis noted on CAT scan. The patient's urinary analysis is consistent with an active urinary tract infection. Given the degree of obstruction and the presence of an obstructive kidney with the urinary tract infection, it was decided to take the patient emergently to the operating room. The reason for the emergency was to avoid acute renal injury and to avoid urosepsis. The patient understood all risks and benefits of the procedure. The patient at this point underwent a retrograde pyelogram, which showed multiple filling defects in the distal ureter. At this point, a wire was passed proximally. With this accomplished, multiple large stones were noted in the distal ureter. Laser lithotripsy was performed. There was no pump mechanism used in order to not cause excessive backflow of fluid and risk urosepsis. The stones were fragments, and multiple stones were basketed under direct ureteroscopic visualization. When all large stone fragments were removed that were in the ureter, the ureteroscope was removed. A 6-Taiwanese 24-cm stent was then placed without complications. The patient tolerated the procedure very well. SELENA ROSSI M.D. [id number]
[2019-02-15] MEDS ORDERED: DOCUSATE SODIUM 100 MG CAPSULE (FP) PO PRN (19:24)
[2019-02-15] MEDS ORDERED: ACETAMINOPHEN 1000 MG/100 ML VIAL (NON FORMULARY) IVPB PRN (19:24)
--- NOTE | 2019-02-15 19:49 | PN ---
Teaching Attending Note Name of Resident: Dillon Thompson ATTENDING PHYSICIAN STATEMENT I saw and evaluated the patient. I reviewed the resident's note and discussed the case with the resident. I agree with the resident's findings and plan as documented. SUBJECTIVE: feels better . seen after her procedure. hematuria OBJECTIVE: NAD, MMM Cv : RRR, no MRG Lungs: CTAB Ext : no edema or erythema Abd: soft, TTP in b/l lower quadrants . no rebound . no rigidity Assessment/Plan: 53 y/o lady with h/o iron def anmeia, nephrolithiasis s/p recent lithotripsy who presented with hematuria and abd pain and was found to have L hydro nephrosis and nephrolithiasis. 1- Nephrolithiasis with L hydro: s/p lithotripsy and L stent placement - cont Abx pendign urine cx - follow and montior hematuria 2- iron def anemia : ferrous sulfate 3- constipation : due to iron . colace 4- start heparin sq. if hematuria worsens, then will stop
--- NOTE | 2019-02-15 20:50 | PN ---
Physical Exam: SUBJECTIVE: Patient seen and examined NAEON. NPO for cystcopy and uteral procedure POD#0 for uteretoscopy, nephrolithiasis removal, urteral stenting OBJECTIVE: Vital Signs Period Temp Pulse Resp BP Sys/Mercedes Pulse Ox Last 24 Hr 97.9 F-98.7 F 55-74 18-20 106-142/54-74 97-100 GENERAL: Awake, alert, and fully oriented, in no acute distress. Obese female EARS, NOSE, THROAT: Moist mucous membranes. LUNGS: Breath sounds equal, clear to auscultation bilaterally. No wheezes, and no crackles. HEART: Regular rate and rhythm, normal S1 and S2 without murmur, rub or gallop. ABDOMEN: Obese, Soft, tender, LLQ MUSCULOSKELETAL: Normal range of motion at all joints. No CVA tenderness. LOWER EXTREMITIES: 2+ pulses, warm, well-perfused. No calf tenderness. No peripheral edema. NEUROLOGICAL: Normal speech. Normal gait. PSYCHIATRIC: Cooperative. Good eye contact. Appropriate mood and affect. Laboratory Results - last 24 hr 02/15/19 06:22 WBC 5.4 RBC 3.51 L Hgb 10.2 L Hct 30.6 L MCV 87.1 MCH 29.0 MCHC 33.3 RDW 12.5 Plt Count 286 MPV 9.0 Active Medications Generic Name Dose Route Start Last Admin Trade Name Freq PRN Reason Stop Dose Admin Acetaminophen 1,000 mg 02/15/19 19:24 Ofirmev Injection - IVPB Q6H PRN PAIN LEVEL 7 - 10 Docusate Sodium 100 mg 02/15/19 19:24 Colace - PO BID PRN CONSTIPATION Ferrous Sulfate 325 mg 02/15/19 22:00 Feosol - PO BID [facility] Heparin Sodium (Porcine) 5,000 unit 02/15/19 22:00 Heparin - SQ TID [facility] Ceftriaxone Sodium 1 gm/ 50 mls @ 100 mls/hr 02/16/19 10:00 Dextrose IVPB DAILY [facility] Ondansetron HCl 4 mg 02/15/19 19:24 Zofran Injection IVPUSH Q6H PRN NAUSEA AND/OR VOMITING Oxycodone HCl 5 mg 02/15/19 13:38 Roxicodone - PO Q4H PRN PAIN LEVEL 6-10 ASSESSMENT/PLAN: 53F with PMHx of PreDM, PreHTN, anemia, kidney stones presenting for hematuria x1d. CT A/P found to have multiple obstructing stones(up to 1.4cm) in the left kidney with Left hydronephrosis. S/p urteral stone basketing and Left ureteral stent placement([facility], 02/15/19). # Hematuria 2/2 to aseptic obstructing nephorlithiasis > CT A/P: multiple obstructing stones(up to 1.4cm) in the left kidney with Left hydronephrosis - Urol consult- Jamie Callahan --s/p stone basketing + ureteral stent --ceftriaxone --FeSO4 - pain mgmt: ofirmev(24hs), then oxycodone # PreDM, - monitor daily sugar # PreHTN - no medications needed - monitor vitals # Normocytic anemia --possibly 2/2 hematuria > Hgb ~11, MCV ~87 - Cont to monitor FEN: - reg diet - no IVF needed DVT PPX: - SubQ Hep Dispo Med surg admit pending urology Visit type - Emergency Visit Emergency Visit: No - New Patient This patient is new to me today: No - Critical Care Critical Care patient: No ATTENDING PHYSICIAN STATEMENT I saw and evaluated the patient. I reviewed the resident's note and discussed the case with the resident. I agree with the resident's findings and plan as documented. SUBJECTIVE: OBJECTIVE: ASSESSMENT AND PLAN:
[2019-02-15] MEDS: HEPARIN NA (PORCINE) 5,000 UNITS/ML 1ML VIAL SQ SCH (21:09)
[2019-02-16] MEDS: HEPARIN NA (PORCINE) 5,000 UNITS/ML 1ML VIAL SQ SCH ×2 (05:18→14:13)
[2019-02-16] MEDS ORDERED: cefTRIAXone SODIUM 1 GM VIAL ONE (08:31)
[2019-02-16] MEDS ORDERED: DEXTROSE 5%-WATER - 50 ML IVPB ONE (08:31)
[2019-02-16 08:35] LABS: HEMOGLOBIN 10.9 GM/dL (10.7-15.3); MCH 28.8 pg (25.7-33.7); MEAN PLT VOLUME 9.5 fl (7.5-11.1); PLATELET COUNT 263 K/MM3 (134-434); RDW 12.3 % (11.6-15.6); WHITE BLOOD COUNT 6.2 K/mm3 (4.0-10.0)
[2019-02-16] MEDS: FERROUS SO4 325 MG TABLET (FP) PO SCH (09:02)
[2019-02-16 09:12] LABS: CALCIUM 9.2 mg/dL (8.5-10.1); CREATININE 0.8 mg/dL (0.55-1.3); PHOSPHOROUS 4.1 mg/dL (2.5-4.9); POTASSIUM 3.9 mmol/L (3.5-5.1)
[2019-02-16] MEDS ORDERED: CEFTRIAXONE 1 GM in DEXTROSE 5%-WATER - 50 ML IVPB SCH (10:00)
--- NOTE | 2019-02-16 10:23 | PATH ---
Surgical Pathology Report Patient Name: SANJUANITA MORENO Med. Rec. #: [id number] /Age/Gender: 1965 (Age: 53) / F Account: [id number] Location: [facility] MED/SURG Taken: 02/15/2019 Received: 02/15/2019 Reported: 02/16/2019 Physicians: Pb Cruz Specimen(s) Received URETERAL STONE, LEFT Clinical History Left ureteral and kidney stone Final Diagnosis URETERAL STONE, LEFT, LASER LITHOTRIPSY: URETEROLITHIASIS. MACROSCOPIC DIAGNOSIS. Electronically Signed Kaylee Espinal M.D. Gross Description Received fresh labeled "left ureteral stone," are 6 zhou, irregular calculi ranging from 0.2-0.4 cm in greatest dimension. The specimen is sent for chemical analysis. /02/15/201902/15/2019
[2019-02-16 14:07] VITALS: BP 141/85; PULSE 67; TEMP 99.3
--- NOTE | 2019-02-16 17:31 | PN ---
Teaching Attending Note Name of Resident: Eugene Emery ATTENDING PHYSICIAN STATEMENT I saw and evaluated the patient. I reviewed the resident's note and discussed the case with the resident. I agree with the resident's findings and plan as documented. SUBJECTIVE: No fever or chills. abd pain is better . no N/V. 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 no rebound . no rigidity . NL BS Assessment/Plan: 53 y/o lady with h/o iron def anmeia, nephrolithiasis s/p recent lithotripsy who presented with hematuria and abd pain and was found to have L hydro nephrosis and nephrolithiasis. 1- Nephrolithiasis with L hydro: s/p lithotripsy and L stent placement - Dc abx aas urine cx is neg - follow up with uro as out pt for removal of her stent - tylenol adn Ibuprofen after dc 2- Iron def anemia: ferrous sulfate 3- constipation : due to iron . cont bowel regimen after dc dc home today
--- NOTE | 2019-02-16 17:39 | DS ---
Physical Exam: SUBJECTIVE: Patient seen and examined OBJECTIVE: Vital Signs Period Temp Pulse Resp BP Sys/Mercedes Pulse Ox Last 24 Hr 98.2 F-99.3 F 59-75 19-20 118-144/58-85 99-100 PHYSICAL EXAM GENERAL: Awake, alert, and fully oriented, in no acute distress. Obese female EARS, NOSE, THROAT: Moist mucous membranes. LUNGS: Breath sounds equal, clear to auscultation bilaterally. No wheezes, and no crackles. HEART: Regular rate and rhythm, normal S1 and S2 without murmur, rub or gallop. ABDOMEN: Obese, Soft, tender, LLQ MUSCULOSKELETAL: Normal range of motion at all joints. No CVA tenderness. LOWER EXTREMITIES: 2+ pulses, warm, well-perfused. No calf tenderness. No peripheral edema. NEUROLOGICAL: Normal speech. Normal gait. PSYCHIATRIC: Cooperative. Good eye contact. Appropriate mood and affect. LABS Laboratory Results - last 24 hr 02/16/19 02/16/19 02/16/19 08:00 08:00 11:39 WBC 6.2 RBC 3.80 Hgb 10.9 Hct 33.0 MCV 87.0 MCH 28.8 MCHC 33.0 RDW 12.3 Plt Count 263 MPV 9.5 Sodium 140 Potassium 3.9 Chloride 106 Carbon Dioxide 24 Anion Gap 10 BUN 13.0 Creatinine 0.8 Est GFR (CKD-EPI)AfAm 96.87 Est GFR (CKD-EPI)NonAf 83.58 POC Glucometer 98 Random Glucose 123 H Calcium 9.2 Phosphorus 4.1 Magnesium 2.0 HOSPITAL COURSE: Date of Admission:02/14/19 Date of Discharge: 02/16/19 53F with PMHx of PreDM, PreHTN, anemia, kidney stones presenting for hematuria x1d. CT A/P found to have multiple obstructing stones(up to 1.4cm) in the left kidney with Left hydronephrosis. S/p urteral stone basketing and Left ureteral stent placement([facility], 02/15/19). Given ceftriaxone one day post-op. Abx stopped b/c UA and UCX were neg for infection. Continued FeSO4. Mild left flank throbbing pain persists but controlled with ofirmev. Stable for discharge home. Minutes to complete discharge: 20 Discharge Summary Problems reviewed: Yes Reason For Visit: HYDRONEPHROSIS WITH RENAL AND URETERAL CALCULUS Condition: Improved - Instructions Diet, Activity, Other Instructions: You were evaluated in the hospital for lower abdominal pain with associated bloody urine. Imaging found that you had several kidney stones(as large as 1.4cm ) that was causing an obstruction in the kidney. You were seen by a Urologist that took you to the operating room and removed several kidney stones and left a ureteral stent. You pain improved. Medications: - NEW medications: --pain medications: use over the counter acetaminophen 650mg every 6 hours or ibuprofen 400mg every 6 hours ---note: you should keep your acetaminophen intake below 4000mg daily --stool softener: docusate[COLACE] 100mg, twice a day - continue with your other home medications Please follow-up with the physicians within 1 week: - Urologist(Anthony): to follow-up about the Left-sided ureteral stent Additional Instructions: - drink plenty of fluids which would reduce risk of future kidney stones Please seek immediate medical evaluation if you experience: - fever(Temperature > 100.3F), chills, nausea, vomiting - increased bloody urination Referrals: Pb Cruz MD [Staff Physician] - 1 Week Disposition: HOME - Home Medications Comprehensive Discharge Medication List: Ambulatory Orders Ferrous Sulfate [Iron] 325 mg PO DAILY 12/20/17 Acetaminophen [Tylenol] 650 mg PO Q6H PRN #30 tablet 02/16/19 Docusate Sodium [Colace -] 100 mg PO BID PRN 30 Days #60 capsule 02/16/19 Ibuprofen [Advil -] 400 mg PO QID PRN #120 tablet 02/16/19 This patient is new to me today: No Emergency Visit: No Critical Care patient: No - Discharge Referral Referred to [facility] Med P.C[facility] No ATTENDING PHYSICIAN STATEMENT I saw and evaluated the patient. I reviewed the resident's note and discussed the case with the resident. I agree with the resident's findings and plan as documented. SUBJECTIVE: OBJECTIVE: ASSESSMENT AND PLAN:
== END 2019-02-16 15:04 | disposition home or self-care (01) | DRG 446 ==
LOC: JERFT 19:10 → OBSVTOIN 02-14 02:05 → JERBED 02-14 02:05 → J7W 02-14 03:06
PROVIDERS: ADMIT Internal Medicine; ATTEND Internal Medicine
PROC: 0TC78ZZ Extirpation of Matter from Left Ureter, Via Natural or Artificial Opening Endoscopic (ICD-10-PCS; principal; 2019-02-15 10:00)
PROC: 0T778DZ Dilation of Left Ureter with Intraluminal Device, Via Natural or Artificial Opening Endoscopic (ICD-10-PCS; 2019-02-15 10:00)
PROC: BT1FZZZ Fluoroscopy of Left Kidney, Ureter and Bladder (ICD-10-PCS; 2019-02-15 10:00)
DX: N13.6 Pyonephrosis (principal); K59.00 Constipation, unspecified; D50.9 Iron deficiency anemia, unspecified; E66.9 Obesity, unspecified; Z68.33 Body mass index [BMI] 33.0-33.9, adult
CPT/HCPCS: 36415; 74176-TC; 76000-TC-FY; 80048; 80053; 81003; 82360; 82550; 82553; 82962; 83735; 84100; 84484; 85025; 85027; 85610; 85730; 86850; 86900; 86901; 87086; 88300-TC; 93005; 93010; 94760; 99284-25; J0131; J1644; J7030

== ENCOUNTER 2020-05-22 05:30 | Day surgery (SDC) | payer OTHER ==
[2020-05-18 17:53] VITALS: BMI 32.9
[2020-05-22 16:27] VITALS: BP 129/60; PULSE 59; TEMP 98.1
== END 2020-05-22 16:45 | disposition home or self-care (01) ==
LOC: JASU-SURG 05:30
PROVIDERS: ATTEND Urology
PROC: 0TF4XZZ Fragmentation in Left Kidney Pelvis, External Approach (ICD-10-PCS; principal; 2020-05-22 11:00)
DX: N20.0 Calculus of kidney (principal)

== ENCOUNTER 2020-10-09 04:29 | Day surgery (SDC) | payer OTHER ==
[2020-10-06 08:51] VITALS: BMI 34.0
[2020-10-09] MEDS ORDERED: PROPOFOL 20 ML ONE (14:54)
[2020-10-09] MEDS ORDERED: KETOROLAC TROMETHAMINE 30 MG/1 ML VIAL ONE (14:54)
[2020-10-09 17:54] VITALS: BP 135/67; PULSE 59; TEMP 97.5
== END 2020-10-09 17:50 | disposition home or self-care (01) ==
LOC: JASU-SURG 04:29
PROVIDERS: ATTEND Urology
PROC: 0TF3XZZ Fragmentation in Right Kidney Pelvis, External Approach (ICD-10-PCS; principal; 2020-10-09 12:00)
DX: N20.0 Calculus of kidney (principal)

== ENCOUNTER 2021-02-09 10:56 | Observation (INO) | payer OTHER ==
[2021-02-09 12:38] LABS: BASO % 2.6 % (0-2.0); EOS % 1.5 % (0-4.5); HEMATOCRIT 34.7 % (32.4-45.2); HEMOGLOBIN 11.5 GM/dL (10.7-15.3); LYMPH % 52.1 % (8-40); MCH 28.5 pg (25.7-33.7); MCHC 33.1 g/dl (32.0-36.0); MEAN PLT VOLUME 8.5 fl (7.5-11.1); NEUT % 36.8 % (42.8-82.8); PLATELET COUNT 305 10^3/uL (134-434); RBC 4.04 M/mm3 (3.60-5.2); RDW 12.8 % (11.6-15.6); WHITE BLOOD COUNT 5.8 K/mm3 (4.0-10.0)
[2021-02-09 12:54] LABS: CHLORIDE 105 mmol/L (98-107); SODIUM 138 mmol/L (136-145)
[2021-02-09 12:56] LABS: CALCIUM 9.2 mg/dL (8.5-10.1)
[2021-02-09 12:57] LABS: ALBUMIN 3.7 g/dl (3.4-5.0); ANION GAP 6 MMOL/L (8-16); BLOOD UREA NITROGEN 12.6 mg/dL (7-18); CO2 27 mmol/L (21-32); GLUCOSE,RANDOM 128 mg/dL (74-106)
[2021-02-09 13:00] LABS: CREATININE 0.8 mg/dL (0.55-1.3); SGOT/AST 52 U/L (15-37); SGPT/ALT 35 U/L (13-61)
[2021-02-09 13:02] LABS: ALK PHOS 99 U/L (45-117); TOT PROT 8.3 g/dl (6.4-8.2)
[2021-02-09 13:05] LABS: N-TERMINAL BNP 51.8 pg/ml (5-125)
[2021-02-09 13:46] LABS: EPI CELLS 5 /uL (0-25.1); HYALINE CASTS 1 /uL (0-3.1); URINE APPEARANCE CLEAR; URINE BACTERIA 65 /uL (0-1359); URINE BILIRUBIN NEGATIVE (NEGATIVE); URINE COLOR YELLOW; URINE GLUCOSE (UA) NEGATIVE (NEGATIVE); URINE KETONE NEGATIVE (NEGATIVE); URINE LEUK ESTERASE TRACE (NEGATIVE); URINE NITRITE NEGATIVE (NEGATIVE); URINE PROTEIN NEGATIVE (NEGATIVE); URINE RBC 17 /uL (0-23.9); URINE WBC 7 /uL (0-25.8)
[2021-02-09 14:40] LABS: ALBUMIN 3.7 g/dl (3.4-5.0); BLOOD UREA NITROGEN 12.1 mg/dL (7-18); CALCIUM 9.4 mg/dL (8.5-10.1)
[2021-02-09 14:43] LABS: CREATININE 0.7 mg/dL (0.55-1.3)
[2021-02-09 14:45] LABS: BILIRUBIN,TOTAL 0.8 mg/dL (0.2-1); TOT PROT 7.8 g/dl (6.4-8.2)
[2021-02-09] MEDS ORDERED: POLYETHYLENE GLYCOL (HEALTHYLAX) 3350 17 GM PACKET PO PRN (16:45)
[2021-02-09] MEDS ORDERED: DOCUSATE SODIUM 100 MG CAPSULE (FP) PO PRN (16:45)
[2021-02-09] MEDS ORDERED: FAMOTIDINE 20 MG TABLET ONE (21:42)
[2021-02-09] MEDS: FAMOTIDINE 20 MG TABLET PO SCH (22:14)
[2021-02-09] MEDS: INSULIN SLIDING SCALE (NOVOLOG) 1 VIAL SQ SCH (22:43)
[2021-02-10 05:26] VITALS: BMI 34.0
[2021-02-10] MEDS: INSULIN SLIDING SCALE (NOVOLOG) 1 VIAL SQ SCH ×4 (06:48→21:24)
[2021-02-10 08:38] LABS: BASO % 1.1 % (0-2.0); EOS % 0.9 % (0-4.5); HEMATOCRIT 32.6 % (32.4-45.2); LYMPH % 56.8 % (8-40); MCH 28.8 pg (25.7-33.7); MCHC 33.8 g/dl (32.0-36.0); MEAN CELL VOLUME 85.1 fl (80-96); MEAN PLT VOLUME 8.5 fl (7.5-11.1); MONO % 5.4 % (3.8-10.2); NEUT % 35.8 % (42.8-82.8); PLATELET COUNT 293 10^3/uL (134-434); RBC 3.83 M/mm3 (3.60-5.2); RDW 12.8 % (11.6-15.6); WHITE BLOOD COUNT 5.7 K/mm3 (4.0-10.0)
[2021-02-10 08:55] LABS: CALCIUM 9.1 mg/dL (8.5-10.1)
[2021-02-10 08:56] LABS: ALBUMIN 3.3 g/dl (3.4-5.0)
[2021-02-10 08:59] LABS: CREATININE 0.8 mg/dL (0.55-1.3)
[2021-02-10 09:00] LABS: BILIRUBIN,TOTAL 0.8 mg/dL (0.2-1); TOT PROT 7.5 g/dl (6.4-8.2)
[2021-02-10] MEDS: ENOXAPARIN NA (PORCINE) 40 MG/0.4 ML DISP.SYRIN SQ SCH (09:55)
[2021-02-10] MEDS: CLOPIDOGREL BISULFATE 75 MG TABLET (FP) PO SCH (09:55)
[2021-02-10] MEDS: FAMOTIDINE 20 MG TABLET PO SCH ×2 (09:55→21:23)
[2021-02-10] MEDS ORDERED: ENOXAPARIN NA (PORCINE) 30 MG/0.3 ML DISP.SYRIN SQ SCH (10:00)
[2021-02-10] MEDS: ATORVASTATIN CA 20 MG TABLET (FP) PO SCH (21:23)
[2021-02-11] MEDS: INSULIN SLIDING SCALE (NOVOLOG) 1 VIAL SQ SCH ×3 (06:16→21:20)
[2021-02-11] MEDS: ENOXAPARIN NA (PORCINE) 40 MG/0.4 ML DISP.SYRIN SQ SCH (09:44)
[2021-02-11] MEDS: FAMOTIDINE 20 MG TABLET PO SCH ×2 (09:44→21:26)
[2021-02-11] MEDS: CLOPIDOGREL BISULFATE 75 MG TABLET (FP) PO SCH (09:44)
[2021-02-11 11:04] LABS: CHOLESTEROL 192 mg/dL (50-200); LDL CHOLESTEROL (ONLY SJRH) 107 mg/dL (5-100); TRIGLYCERIDES 106 mg/dL (0-150)
[2021-02-11 11:07] LABS: HDL CHOLESTEROL 57 mg/dL (40-60)
[2021-02-11] MEDS: ATORVASTATIN CA 20 MG TABLET (FP) PO SCH (21:26)
[2021-02-12] MEDS: INSULIN SLIDING SCALE (NOVOLOG) 1 VIAL SQ SCH ×4 (06:15→21:24)
[2021-02-12] MEDS: FAMOTIDINE 20 MG TABLET PO SCH ×2 (12:45→21:23)
[2021-02-12] MEDS: CLOPIDOGREL BISULFATE 75 MG TABLET (FP) PO SCH (12:46)
[2021-02-12] MEDS: ENOXAPARIN NA (PORCINE) 40 MG/0.4 ML DISP.SYRIN SQ SCH (12:46)
[2021-02-12] MEDS: ATORVASTATIN CA 20 MG TABLET (FP) PO SCH (21:23)
[2021-02-13] MEDS: INSULIN SLIDING SCALE (NOVOLOG) 1 VIAL SQ SCH ×4 (06:11→21:21)
[2021-02-13] MEDS: FAMOTIDINE 20 MG TABLET PO SCH ×2 (10:24→21:20)
[2021-02-13] MEDS: CLOPIDOGREL BISULFATE 75 MG TABLET (FP) PO SCH (10:24)
[2021-02-13] MEDS: ENOXAPARIN NA (PORCINE) 40 MG/0.4 ML DISP.SYRIN SQ SCH (10:24)
[2021-02-13] MEDS: LISINOPRIL 5 MG TABLET PO SCH (10:25)
[2021-02-13] MEDS: ATORVASTATIN CA 20 MG TABLET (FP) PO SCH (21:20)
[2021-02-14] MEDS: INSULIN SLIDING SCALE (NOVOLOG) 1 VIAL SQ SCH ×4 (05:59→21:25)
[2021-02-14 08:10] LABS: HEMATOCRIT 35.2 % (32.4-45.2); HEMOGLOBIN 11.7 GM/dL (10.7-15.3); MCH 28.8 pg (25.7-33.7); MCHC 33.2 g/dl (32.0-36.0); MEAN CELL VOLUME 86.6 fl (80-96); MEAN PLT VOLUME 8.7 fl (7.5-11.1); PLATELET COUNT 323 10^3/uL (134-434); RBC 4.06 M/mm3 (3.60-5.2); RDW 12.6 % (11.6-15.6); WHITE BLOOD COUNT 5.9 K/mm3 (4.0-10.0)
[2021-02-14 08:45] LABS: BLOOD UREA NITROGEN 15.8 mg/dL (7-18); CALCIUM 9.5 mg/dL (8.5-10.1); MAGNESIUM 2.2 mg/dL (1.8-2.4)
[2021-02-14 08:48] LABS: CREATININE 0.8 mg/dL (0.55-1.3); PHOSPHOROUS 4.9 mg/dL (2.5-4.9)
[2021-02-14] MEDS: ENOXAPARIN NA (PORCINE) 40 MG/0.4 ML DISP.SYRIN SQ SCH (09:46)
[2021-02-14] MEDS: CLOPIDOGREL BISULFATE 75 MG TABLET (FP) PO SCH (09:47)
[2021-02-14] MEDS: LISINOPRIL 5 MG TABLET PO SCH (09:47)
[2021-02-14] MEDS: FAMOTIDINE 20 MG TABLET PO SCH ×2 (09:47→21:24)
[2021-02-14] MEDS: ATORVASTATIN CA 20 MG TABLET (FP) PO SCH (21:24)
[2021-02-15] MEDS: INSULIN SLIDING SCALE (NOVOLOG) 1 VIAL SQ SCH ×3 (06:05→16:51)
[2021-02-15 08:09] LABS: CALCIUM 9.2 mg/dL (8.5-10.1)
[2021-02-15 08:10] LABS: BLOOD UREA NITROGEN 15.3 mg/dL (7-18); MAGNESIUM 2.1 mg/dL (1.8-2.4)
[2021-02-15 08:13] LABS: CREATININE 0.7 mg/dL (0.55-1.3)
[2021-02-15] MEDS: FAMOTIDINE 20 MG TABLET PO SCH (09:18)
[2021-02-15] MEDS: CLOPIDOGREL BISULFATE 75 MG TABLET (FP) PO SCH (09:18)
[2021-02-15] MEDS: ENOXAPARIN NA (PORCINE) 40 MG/0.4 ML DISP.SYRIN SQ SCH (09:18)
[2021-02-15] MEDS: LISINOPRIL 5 MG TABLET PO SCH (09:19)
[2021-02-15 13:22] VITALS: PULSE 65
[2021-02-15 18:33] VITALS: BP 118/66; TEMP 98.5
== END 2021-02-15 19:07 | disposition short-term general hospital (02) ==
LOC: JER 10:56 → JERBED 15:07 → J4S 02-10 02:44
PROVIDERS: ADMIT Internal Medicine
PROC: 3E023GC Introduction of Other Therapeutic Substance into Muscle, Percutaneous Approach (ICD-10-PCS; principal; 2021-02-09)
DX: R07.9 Chest pain, unspecified (principal); R06.02 Shortness of breath; R94.39 Abnormal result of other cardiovascular function study; N13.2 Hydronephrosis with renal and ureteral calculous obstruction; K21.9 Gastro-esophageal reflux disease without esophagitis; I10 Essential (primary) hypertension; R73.03 Prediabetes; Z87.442 Personal history of urinary calculi; R31.9 Hematuria, unspecified; Z48.02 Encounter for removal of sutures; M54.59 Other low back pain; Z29.9 Encounter for prophylactic measures, unspecified; Z88.8 Allergy status to other drugs, medicaments and biological substances; E66.8 Other obesity; Z68.34 Body mass index [BMI] 34.0-34.9, adult
CPT/HCPCS: 36415; 71046-TC-FY; 78452-TC; 80048; 80053; 80061; 81003; 82550; 82553; 82962; 83036; 83735; 83880; 84100; 84439; 84443; 84484; 85025; 85027; 87086; 93005; 93010; 93017; 93306-TC; 96372; 99285-25; A9502; C9803; G0378; U0003; U0005

== ENCOUNTER 2022-09-09 05:35 | Day surgery (SDC) | payer OTHER ==
[2022-09-06 12:41] VITALS: BMI 34.0
[2022-09-09 10:32] VITALS: RESP 20
[2022-09-09] MEDS ORDERED: ONDANSETRON 4 MG/2 ML VIAL ONE (12:42)
[2022-09-09] MEDS ORDERED: MIDAZOLAM HCL 2 MG/2 ML SINGLE DOSE VIAL ONE (12:42)
[2022-09-09 14:14] VITALS: PULSE 52
[2022-09-09 15:02] VITALS: TEMP 97.6
[2022-09-09 15:57] VITALS: BP 114/59
== END 2022-09-09 16:25 | disposition home or self-care (01) ==
LOC: JASU-SURG 05:35
PROVIDERS: ATTEND Urology
PROC: 0TF4XZZ Fragmentation in Left Kidney Pelvis, External Approach (ICD-10-PCS; principal; 2022-09-09 12:30)
DX: N20.0 Calculus of kidney (principal)

== ENCOUNTER 2023-02-20 06:44 | Emergency (ER) | payer OTHER ==
[2023-02-20 07:09] VITALS: BP 155/59; PULSE 65; RESP 18; TEMP 98.1; BMI 33.1
[2023-02-20 09:34] LABS: THROAT:GRP A STREP NOT DETECTED (NOTDETECTED)
== END 2023-02-20 09:07 | disposition home or self-care (01) ==
LOC: FER 06:44
DX: J02.9 Acute pharyngitis, unspecified (principal); J04.0 Acute laryngitis; R49.0 Dysphonia; Z20.822 Contact with and (suspected) exposure to COVID-19
CPT/HCPCS: 0241U-QW; 87070; 87651; 99283-25

== ENCOUNTER 2023-05-13 21:31 | Emergency (ER) | payer OTHER ==
[2023-05-13 21:46] VITALS: BP 135/63; PULSE 74; RESP 20; TEMP 97.5; BMI 32.8
[2023-05-13 23:52] LABS: BASO % 0.8 % (0-2.0); EOS % 0.8 % (0-4.5); HEMATOCRIT 34.5 % (32.4-45.2); HEMOGLOBIN 11.3 GM/dL (10.7-15.3); LYMPH % 46.1 % (8-40); MCH 28.4 pg (25.7-33.7); MCHC 32.8 g/dl (32.0-36.0); MEAN CELL VOLUME 86.4 fl (80-96); MONO % 6.6 % (3.8-10.2); NEUT % 45.7 % (42.8-82.8); PLATELET COUNT 303 10^3/uL (134-434); RBC 3.99 M/mm3 (3.60-5.2); RDW 12.8 % (11.6-15.6); WHITE BLOOD COUNT 9.1 K/mm3 (4.0-10.0)
[2023-05-14 00:09] LABS: CALCIUM 9.7 mg/dL (8.5-10.1)
[2023-05-14 00:13] LABS: BLOOD UREA NITROGEN 23.5 mg/dL (7-18)
[2023-05-14 00:14] LABS: CREATININE 0.9 mg/dL (0.55-1.3)
== END 2023-05-14 01:36 | disposition home or self-care (01) ==
LOC: JER 21:31
DX: R05.9 Cough, unspecified (principal); R09.81 Nasal congestion; R51.9 Headache, unspecified; R06.02 Shortness of breath; R07.9 Chest pain, unspecified; J06.9 Acute upper respiratory infection, unspecified; B97.89 Other viral agents as the cause of diseases classified elsewhere; Z20.822 Contact with and (suspected) exposure to COVID-19
CPT/HCPCS: 0241U-QW; 36415; 71046-TC-FY; 80048; 84484; 85025; 85379; 93005; 93010; 99284-25

== ENCOUNTER 2023-07-24 04:01 | Day surgery (SDC) | payer OTHER ==
[2023-07-23 10:07] VITALS: BMI 33.1
[2023-07-24 09:13] VITALS: TEMP 97.9
[2023-07-24 09:38] VITALS: RESP 15
[2023-07-24 09:48] VITALS: BP 118/47; PULSE 64
== END 2023-07-24 10:10 | disposition home or self-care (01) ==
LOC: JASU-ENDO 04:01
PROVIDERS: ATTEND Internal Medicine Gastroenterology
PROC: 0DJD8ZZ Inspection of Lower Intestinal Tract, Via Natural or Artificial Opening Endoscopic (ICD-10-PCS; principal; 2023-07-24 08:30)
DX: Z12.11 Encounter for screening for malignant neoplasm of colon (principal); K64.8 Other hemorrhoids; Z80.0 Family history of malignant neoplasm of digestive organs
CPT/HCPCS: 82962

== ENCOUNTER 2023-10-06 04:19 | Day surgery (SDC) | payer OTHER ==
[2023-10-03 10:47] VITALS: BMI 33.1
[2023-10-06] MEDS ORDERED: ONDANSETRON 4 MG/2 ML VIAL ONE (13:56)
[2023-10-06] MEDS ORDERED: MIDAZOLAM HCL 2 MG/2 ML SINGLE DOSE VIAL ONE (13:56)
[2023-10-06 18:22] VITALS: RESP 18
[2023-10-06 18:25] VITALS: BP 146/68; PULSE 56; TEMP 97.5
== END 2023-10-06 16:26 | disposition home or self-care (01) ==
LOC: JASU-SURG 04:19
PROVIDERS: ATTEND Urology
PROC: 0TF4XZZ Fragmentation in Left Kidney Pelvis, External Approach (ICD-10-PCS; principal; 2023-10-06 14:00)
DX: N20.0 Calculus of kidney (principal)

== ENCOUNTER 2023-12-22 17:45 | Emergency (ER) | payer OTHER ==
[2023-12-22 18:32] VITALS: BP 147/80; PULSE 84; RESP 20; TEMP 98.3; BMI 27.4
[2023-12-22 20:42] LABS: HEMATOCRIT 36.3 % (32.4-45.2); HEMOGLOBIN 11.4 G/dL (10.7-15.3); MCH 28.1 pg (25.7-33.7); MCHC 31.3 g/dl (32.0-36.0); MEAN CELL VOLUME 89.8 fl (80-96); MEAN PLT VOLUME 9.2 fl (7.5-11.1); PLATELET COUNT 264.3 10^3/uL (134-434); RBC 4.04 10^6/uL (3.60-5.2); RDW 13.9 % (11.6-15.6); WHITE BLOOD COUNT 8.1 10^3/uL (4.0-10.8)
[2023-12-22 21:06] LABS: ALBUMIN 4.5 g/dl (3.4-5.0); BILIRUBIN,TOTAL 0.6 mg/dl (0.2-1); CALCIUM 9.9 mg/dl (8.5-10.1); CREATININE 0.8 mg/dl (0.6-1.3); POTASSIUM 4.2 mmol/L (3.5-5.1); TOT PROT 7.9 g/dl (6.4-8.2)
[2023-12-22 21:11] LABS: PLATELET ESTIMATE ADEQUATE
== END 2023-12-23 00:46 | disposition home or self-care (01) ==
LOC: FER 17:45
DX: N20.0 Calculus of kidney (principal); N28.1 Cyst of kidney, acquired; R10.31 Right lower quadrant pain; R10.32 Left lower quadrant pain
CPT/HCPCS: 36415; 74177-TC; 80053; 81003; 85027; 99285-25; Q9967